=== PATIENT | female | born 1955 | race Caucasian/White ===

== ENCOUNTER 2016-09-22 08:08 | Day surgery (SDC) | payer BC ==
--- NOTE | ~2016-09-22 | EGD ---
EGD REPORT [facility] [address] [address] NAME: VICTORIA VARGAS : [birth year] STATUS : REG [facility]#: [id number] AGE: 60 ADM/REG DATE : 09/22/16 MR#: [id number] REPORT SERV DATE: 09/22/16 DICTATED BY: PRESTON MORALES DATE: 09/22/16 REPORT STATUS : Draft TRANSCRIBED BY: [facility] DATE: 09/22/16 Endoscopy Center Patient Name: Victoria Vargas Date of : 1955 Attending MD: PRESTON MORALES MD Procedure Date No Time: 09/22/2016 Procedure: Upper GI endoscopy Indications: Dysphagia Referring MD: POP HERNANDEZ Medicines: Propofol per Anesthesia Complications: No immediate complications. Procedure: Pre-Anesthesia Assessment: - ASA Grade Assessment: III - A patient with severe systemic disease. After obtaining informed consent, the endoscope was passed under direct vision. Throughout the procedure, the patient's blood pressure, pulse, and oxygen saturations were monitored continuously. The GIF [id number] was introduced through the mouth, and advanced to the second part of duodenum. The upper GI endoscopy was accomplished without difficulty. The patient tolerated the procedure well. Findings: A benign-appearing, intrinsic mild stenosis was found and was traversed. A guidewire was placed and the scope was withdrawn. Dilation was performed with a Savary dilator with no resistance at 54 Fr. Diffuse moderate inflammation characterized by erosions, erythema and friability was found in the stomach. The examined duodenum was normal. Impression: - Benign-appearing esophageal stricture. Dilated. - Chronic gastritis. - Normal examined duodenum. Procedure Code(s): --- Professional --- 07103, Esophagogastroduodenoscopy, flexible, transoral; with insertion of guide wire followed by passage of dilator(s) through esophagus over guide wire Diagnosis Code(s): --- Professional --- K22.2, Esophageal obstruction K29.50, Unspecified chronic gastritis without bleeding R13.10, Dysphagia, unspecified EGD REPORT [facility] [address] [place] [address] [address] [facility] [address] NAME: VICTORIA VARGAS : [birth year] STATUS : REG [facility]#: [id number] AGE: 60 ADM/REG DATE : 09/22/16 MR#: [id number] REPORT SERV DATE: 09/22/16 DICTATED BY: PRESTON MORALES. DATE: 09/22/16 REPORT STATUS : Draft TRANSCRIBED BY: [facility] DATE: 09/22/16 CPT copyright 2013 [employer]. All rights reserved. The codes documented in this report are preliminary and upon carcass washer review may be revised to meet current compliance requirements. Preston Morales MD PRESTON MORALES MD 09/22/2016 8:58 AM This report has been signed electronically. Number of Addenda: 0 Note Initiated On: 09/22/2016 8:45 AM Scope Withdrawal Time 0 hours 0 minutes 0 seconds [address] [facility] [place] [address]
[~2016-09-22 08:08] MED LIST: ARIMIDEX1 PO; CAT1 PO; COZAAR100 MG PO; DIOV80 PO; GLUCOPHAGE1000 MG PO; IBU-200200 MG PO; ISOPTIN SR240 MG PO; LIPITOR40 PO; LOPID6 PO; MEVACOR40 MG; MEVACOR40 MG PO; MOBIC7.5 PO; VITAMIN D31000 UNIT PO; Z300 PO
== END 2016-09-22 23:59 | disposition home or self-care (01) ==
LOC: DMU 08:08
PROVIDERS: Internal Medicine Gastroenterology
PROC: 0D758ZZ Dilation of Esophagus, Via Natural or Artificial Opening Endoscopic (ICD-10-PCS; principal; 2016-09-22 11:30)
DX: K22.2 Esophageal obstruction (principal); E78.5 Hyperlipidemia, unspecified; I10 Essential (primary) hypertension; M10.9 Gout, unspecified; E11.42 Type 2 diabetes mellitus with diabetic polyneuropathy; M19.90 Unspecified osteoarthritis, unspecified site; G47.33 Obstructive sleep apnea (adult) (pediatric); E66.01 Morbid (severe) obesity due to excess calories; Z68.41 Body mass index [BMI] 40.0-44.9, adult; Z90.710 Acquired absence of both cervix and uterus; Z90.12 Acquired absence of left breast and nipple
CPT/HCPCS: 82962